=== PATIENT | male | born 1985 | race Hispanic/Latino ===

== ENCOUNTER 2016-11-23 13:02 | Emergency (ER) | payer MEDICAID, OTHER ==
[2016-11-23 13:02] VITALS: BMI 27.2
[2016-11-23 13:15] VITALS: TEMP 98.5
--- NOTE | 2016-11-23 13:37 | C.PDOC ---
History Of Present Illness 31-YEAR-OLD MALE, PRESENTS TO THE EMERGENCY DEPARTMENT WITH COMPLAINTS OF HEADACHE AND RIGHT SHOULDER PAIN. PATIENT STATES HE WAS PLAYING SOFTBALL YESTERDAY, COLLIDED WITH ANOTHER PERSON, FELL AND STRUCK HEAD W +LOC. HE IS CURRENTLY COMPLAINING OF DIFFUSE FRONTAL HEADACHE, NAUSEA/NON-BILIOUS, NON- BLOODY VOMITING. PATIENT NOTES NEW ONSET RIGHT SHOULDER PAIN, THAT IS WORSE WITH MOVEMENT DENIES HX OF CHRONIC SHOULDER PROBLEMS. NO NECK PAIN OR FOCAL WEAKNESS. NO AMS. - HPI Time Seen by Provider: 11/23/16 14:11 Chief Complaint (Nursing): Headache History Per: Patient History/Exam Limitations: no limitations Onset/Duration Of Symptoms: Days Past Medical History Reviewed: Historical Data, Nursing Documentation, Vital Signs Vital Signs: Last Vital Signs Temp 98.5 F 11/23/16 13:15 Pulse 77 11/23/16 14:43 Resp 18 11/23/16 14:43 BP 119/77 11/23/16 14:43 Pulse Ox 98 11/23/16 14:43 - Medical History PMH: HTN, Seizures (WITHDRAWAL FROM ALCOHOL) Denies: Anxiety, Bipolar Disorder, Depression, HIV, Post Traumatic Stress Disorder, Chronic Kidney Disease, Schizophrenia, Sexually Transmitted Disease - [facility] Procedures ALCOHOL DETOXIFICATION (08/30/14) DETOXIFICATION SERVICES FOR SUBSTANCE ABUSE TREATMENT (09/14/15) GROUP MEDICAL CONSULTANT FOR SUBSTANCE ABUSE TREATMENT, PSYCHOEDUCATION (04/06/15) Family History: States: No Known Family Hx - Social History Hx Tobacco Use: No Hx Alcohol Use: Yes Hx Substance Use: No - Immunization History Hx Tetanus Toxoid Vaccination: No Hx Influenza Vaccination: No Hx Pneumococcal Vaccination: No Review Of Systems Except As Marked, All Systems Reviewed And Found Negative. Constitutional: Negative for: Fever Cardiovascular: Negative for: Chest Pain Respiratory: Negative for: Shortness of Breath Gastrointestinal: Positive for: Nausea, Vomiting Neurological: Positive for: Headache. Negative for: Weakness, Numbness, Altered Mental Status Physical Exam - Physical Exam Appears: Non-toxic, No Acute Distress Skin: Warm, Dry, No Rash Head: Atraumatic, Normacephalic Eye(s): bilateral: Normal Inspection, PERRL, EOMI Oral Mucosa: Moist Lips: Normal Appearing Neck: Normal ROM Cardiovascular: Rhythm Regular, No Murmur Respiratory: Normal Breath Sounds, No Accessory Muscle Use Extremity: Normal ROM (R SHOULDER: REPRODUCIBLE PAIN WITH ALL MOVEMENT.), No Deformity, No Swelling Neurological/Psych: Oriented x3, Normal Speech, Normal Cognition, Normal Cranial Nerves, No Cerebellar Signs, Normal Motor, Normal Sensation, Normal Reflexes, Other (NO FOCAL DEFICIT) ED Course And Treatment O2 Sat by Pulse Oximetry: 99 Reevaluation Time: 15:13 Reassessment Condition: Improved Disposition Counseled Patient/Family Regarding: Studies Performed, Diagnosis, Need For Followup - Disposition Referrals: [facility] [Outside] [facility] [Outside] Disposition: HOME/ ROUTINE Disposition Time: 15:13 Condition: IMPROVED Instructions: Concussion (ED), Shoulder Sprain (ED) Forms: [employer] (Hebrew) - Clinical Impression Clinical Impression: Concussion, Shoulder strain - Scribe Statement The provider has reviewed the documentation as recorded by the Scribe (Coby Ly) All medical record entries made by the Scribe were at my direction and personally dictated by me. I have reviewed the chart and agree that the record accurately reflects my personal performance of the history, physical exam, medical decision making, and the department course for this patient. I have also personally directed, reviewed, and agree with the discharge instructions and disposition.
--- NOTE | 2016-11-23 14:30 | CT ---
PROCEDURE: CT HEAD WITHOUT CONTRAST. HISTORY: TRAUMA COMPARISON: Head CT without contrast 09/16/2015. TECHNIQUE: Axial computed tomography images were obtained through the head/brain without intravenous contrast. Radiation dose: Total exam DLP = 999 mGy-cm. This CT exam was performed using one or more of the following dose reduction techniques: Automated exposure control, adjustment of the mA and/or kV according to patient size, and/or use of iterative reconstruction technique. FINDINGS: HEMORRHAGE: No intracranial hemorrhage. BRAIN: Density of the tolbert and white matter structures above or below the tentorium appears within normal limits grossly. There is no mass effect or suspicious extra-axial fluid collection identified. The brainstem is normal appearing. The remaining midline brain anatomy also appears normal. No significant interval change is encountered. VENTRICLES: Unremarkable. No hydrocephalus. CALVARIUM: No fracture or suspicious lytic or blastic process. PARANASAL SINUSES: Unremarkable as visualized. No significant inflammatory changes. MASTOID AIR CELLS: Unremarkable as visualized. No inflammatory changes. OTHER FINDINGS: None. IMPRESSION: Unremarkable unenhanced head CT. No significant change greater prior exited 09/16/2015. No fracture or other calvarium is demonstrated either.
[2016-11-23 14:43] VITALS: BP 119/77; PULSE 77; RESP 18
[2016-11-23 15:15] VITALS: O2SAT 99
--- NOTE | 2016-11-23 17:45 | RAD ---
PROCEDURE: Radiographs of the Right Shoulder HISTORY: TRAUMA COMPARISON: No prior. FINDINGS: BONES: Normal. No fracture. JOINTS: Normal. Glenohumeral and acromioclavicular joints preserved. No osteoarthritis. SOFT TISSUES: Normal. OTHER FINDINGS: None. IMPRESSION: Normal radiographs of the right shoulder.
--- NOTE | 2016-11-23 17:46 | RAD ---
PROCEDURE: Radiographs of the right elbow. HISTORY: TRAUMA COMPARISON: No prior. FINDINGS: BONES: No fracture subluxation or dislocation. No suspicious lytic or blastic change JOINTS: Normal. No osteoarthritis. SOFT TISSUES: Normal. JOINT EFFUSION: None. OTHER FINDINGS: None. IMPRESSION: Unremarkable radiographs of the right elbow.
== END 2016-11-23 15:31 | disposition home or self-care (01) ==
LOC: C.ER 13:02
DX: S06.0X9A Concussion with loss of consciousness of unspecified duration, initial encounter (principal); S46.911A Strain of unspecified muscle, fascia and tendon at shoulder and upper arm level, right arm, initial encounter; W03.XXXA Other fall on same level due to collision with another person, initial encounter; Y93.64 Activity, baseball; Y92.39 Other specified sports and athletic area as the place of occurrence of the external cause

== ENCOUNTER 2017-09-18 18:23 | Observation (INO) | payer MEDICAID, OTHER ==
[2017-09-18 18:23] VITALS: BMI 27.2
--- NOTE | 2017-09-18 19:03 | C.PDOC ---
History Of Present Illness 32 y.o male c/o right medial ankle pain for one week that is getting worse. pt doesn't recall any injury. denies fevers. pt walking with a limp now. Time Seen by Provider: 09/18/17 18:45 Chief Complaint (Nursing): Lower Extremity Problem/Injury History Per: Patient History/Exam Limitations: no limitations Onset/Duration Of Symptoms: Days (7) Current Symptoms Are (Timing): Worse Severity: Moderate Past Medical History Reviewed: Historical Data, Nursing Documentation, Vital Signs Vital Signs: Last Vital Signs Temp 98.3 F 09/18/17 21:47 Pulse 88 09/18/17 21:47 Resp 20 09/18/17 21:47 BP 115/84 09/18/17 21:47 Pulse Ox 100 09/18/17 21:47 - Medical History PMH: HTN, Seizures (WITHDRAWAL FROM ALCOHOL) Denies: Anxiety, Bipolar Disorder, Depression, HIV, Post Traumatic Stress Disorder, Chronic Kidney Disease, Schizophrenia, Sexually Transmitted Disease Other PMH: alcohol abuse Surgical History: Cholecystectomy - [facility] Procedures ALCOHOL DETOXIFICATION (08/30/14) DETOXIFICATION SERVICES FOR SUBSTANCE ABUSE TREATMENT (09/14/15) GROUP MUFFLER TENDER FOR SUBSTANCE ABUSE TREATMENT, PSYCHOEDUCATION (04/06/15) Family History: States: Unknown Family Hx - Social History Hx Tobacco Use: No Hx Alcohol Use: No Hx Substance Use: No - Immunization History Hx Tetanus Toxoid Vaccination: (unk) Hx Influenza Vaccination: No Hx Pneumococcal Vaccination: No Review Of Systems Constitutional: Negative for: Fever, Chills Cardiovascular: Negative for: Chest Pain Respiratory: Negative for: Cough, Shortness of Breath Musculoskeletal: Positive for: Foot Pain (right and ankle pain) Skin: Positive for: Other (excoriations to right lower leg) Neurological: Negative for: Weakness, Numbness Physical Exam - Physical Exam Appears: Non-toxic, No Acute Distress Skin: Warm, Dry, Other (excoriations to right lower leg; irregular patch of erythema and warmth overlying medial and lateral right malleoli with dec rom. ) Head: Atraumatic, Normacephalic Eye(s): bilateral: Normal Inspection Cardiovascular: Rhythm Regular, No Murmur Respiratory: No Decreased Breath Sounds, No Wheezing Extremity: No Normal ROM (right ankle with dec rom 2/2 pain), Tenderness (to medial and lateral right ankle. ), No Calf Tenderness, Swelling (mild) Extremity: Right: [place] Tenderness (medial malleolus), Bilateral: Atraumatic Pulses: Left Dorsalis Pedis: Normal, Right Dorsalis Pedis: Normal Neurological/Psych: Oriented x3, Normal Speech, Normal Cognition ED Course And Treatment - Laboratory Results Result Diagrams: 09/18/17 19:25 09/18/17 19:25 O2 Sat by Pulse Oximetry: 95 Medical Decision Making Medical Decision Making: pt with 1 week of pain to ankle right that is worsening with erythema and swelling to ankle. no fever, no trauma - gout/cellulitis/septic arthritis discussed with Dr India Gee, will admit for iv antibiotics. Disposition Discussed With Dr.: Erick Gee Doctor Will See Patient In The: Hospital - Disposition Disposition: HOSPITALIZED Disposition Time: 20:31 Condition: GOOD - Clinical Impression Clinical Impression: Septic arthritis of ankle
[2017-09-18 19:30] LABS: BASO # 0.1 K/uL (0.0-0.2); BASO % 0.7 % (0.0-2.0); EOS # 0.2 K/uL (0.0-0.7); EOS % 1.5 % (0.0-4.0); HEMOGLOBIN 15.2 g/dL (12.0-18.0); LYMPH # 2.5 K/uL (1.0-4.3); LYMPH % 18.4 % (20.0-40.0); MEAN CELL VOLUME 83.5 fL (80.0-94.0); MEAN CORPUSCULAR HEMOGLOBIN 29.1 pg (27.0-31.0); MEAN CORPUSCULAR HGB CONC 34.8 g/dL (33.0-37.0); MEAN PLATELET VOLUME 9.1 fL (7.2-11.7); MONO # 1.4 K/uL (0.0-0.8); MONO % 10.4 % (0.0-10.0); NEUT # 9.3 K/uL (1.8-7.0); NRBC % 2.3 % (0.0-2.0); RBC 5.22 Mil/uL (4.40-5.90); RED CELL DISTRIBUTION WIDTH 12.6 % (11.5-14.5); WHITE BLOOD COUNT 13.5 K/uL (4.8-10.8)
[2017-09-18 19:41] LABS: ALB/GLOB RATIO 1.3 (1.0-2.1); ALBUMIN 4.9 g/dL (3.5-5.0); AST/SGOT 27 U/L (17-59); BLOOD UREA NITROGEN 16 mg/dL (9-20); GFR AFRICAN-AMERICAN > 60; GFR NON-AFRICAN AMERICAN > 60
[2017-09-18 20:13] LABS: ALT/SGPT 41 U/L (21-72); CALCIUM 9.8 mg/dl (8.6-10.4); URIC ACID 10.4 mg/dL (3.5-8.5)
[2017-09-18] MEDS ORDERED: Vancomycin 1 gm/NS 200 ml 1 GM/200 ML BAG IVPB STA (20:15)
[2017-09-18] MEDS ORDERED: Piperacillin/Tazobact 3.375 gm 100 ML IVPB STA (20:15)
[2017-09-18] MEDS ORDERED: Piperacillin/Tazobact 3.375 gm 100 ML IVPB ONE (20:36)
[2017-09-18] MEDS ORDERED: Vancomycin 500mg/D5W 100 ml 0 MG/0 ML BAG IVPB ONE (20:37)
--- NOTE | 2017-09-18 21:15 | CP.PCM.HP ---
<Nelson Carcamo E - Last Filed: 09/18/17 22:21> History of Present Illness - History of Present Illness History of Present Illness: CC: Right ankle pain HPI: Patient is a 32 year old male with past medical history of HTN, seizures ( due to alcohol withdrawal), Alcohol abuse, stage 1 cirrhosis, who presents to the ED with complaints of right medial ankle pain that started on Thursday. Patient noted mild right ankle pain while walking in the supermarket on Thursday, however, he was still able to play two softball games. As the week progressed, patient noted increased pain and more discomfort with walking. Patient started with conservative management such as elevation, ice and OTC Tylenol; these measures provided intermittent relief. Patient came to the ED today due to unbearable pain and increased discomfort while walking. During the encounter, patient states that he had similar episode in the past but unsure of what happened. Patient did report that he eats meat 3x/day (heavy protein intake). Patient denies fever, chills, nausea, vomiting, chest pain, palpitations, SOB, dizziness, abdominal pain, diarrhea, trauma or injury to his right leg and alcohol intake Code Status: Full code PMHX: HTN, seziures (due to alcohol withdrawal), Alcohol abuse, stage 1 cirrhosis PSHx: Denies FHx: Denies Medications: Denies Allergies: NKDA Social Hx: Lives with girlfriend. Works with [employer]. Intermittent tobacco use, last alcoholic drink (08/25/2015) and denies illicit drug use Person of contact: Michelle, Present on Admission - Present on Admission Any Indicators Present on Admission: No Review of Systems - Constitutional Constitutional: absent: Chills, Fever, Headache - EENT Ears: absent: Dizziness - Cardiovascular Cardiovascular: absent: Chest Pain, Dyspnea, Edema, Leg Edema, Leg Ulcers, Lightheadedness, Palpitations - Respiratory Respiratory: absent: Dyspnea - Gastrointestinal Gastrointestinal: absent: Abdominal Pain, Diarrhea, Nausea, Vomiting - Musculoskeletal Musculoskeletal: absent: Back Pain, Numbness, Tingling - Neurological Neurological: absent: Abnormal Movements, Dizziness, Headaches, Lack of Coordination, Tingling, Weakness - Endocrine Endocrine: absent: Fatigue, Palpitations Past Patient History - Infectious Disease Hx of Infectious Diseases: None - Past Medical History & Family History Past Medical History?: Yes - Past Social History Smoking Status: Never Smoked - CARDIAC Hx Hypertension: Yes - PULMONARY Hx Respiratory Disorders: No Hx Tuberculosis: No - NEUROLOGICAL Hx Seizures: Yes (WITHDRAWAL FROM ALCOHOL) - HEENT Hx HEENT Problems: No - RENAL Hx Chronic Kidney Disease: No - ENDOCRINE/METABOLIC Hx Endocrine Disorders: No - HEMATOLOGICAL/ONCOLOGICAL Hx Human Immunodeficiency Virus (HIV): No - INTEGUMENTARY Hx Dermatological Problems: No - MUSCULOSKELETAL/RHEUMATOLOGICAL Hx Falls: No - GASTROINTESTINAL Hx Gastrointestinal Disorders: No - GENITOURINARY/GYNECOLOGICAL Hx Sexually Transmitted Disorders: No - PSYCHIATRIC Hx Anxiety: No Hx Bipolar Disorder: No Hx Depression: No Hx Post Traumatic Stress Disorder: No Hx Schizophrenia: No Hx Substance Use: No - SURGICAL HISTORY Hx Cholecystectomy: Yes - ANESTHESIA Hx Anesthesia: No Meds Allergies/Adverse Reactions: Allergies Allergy/AdvReac Type Severity Reaction Status Date / Time No Known Allergies Allergy Verified 09/18/17 18:35 Physical Exam - Constitutional Appears: No Acute Distress - Head Exam Head Exam: ATRAUMATIC, NORMAL INSPECTION - Eye Exam Eye Exam: EOMI, Normal appearance - ENT Exam ENT Exam: Mucous Membranes Moist - Respiratory Exam Respiratory Exam: Clear to Auscultation Bilateral, NORMAL BREATHING PATTERN. absent: Prolonged Expiratory Phase, Rhonchi, Wheezes, Respiratory Distress - Cardiovascular Exam Cardiovascular Exam: REGULAR RHYTHM, +S1, +S2 - GI/Abdominal Exam GI & Abdominal Exam: Normal Bowel Sounds, Soft. absent: Distended, Firm, Guarding, Tenderness - Extremities Exam Additional comments: Blanching erythema of the right ankle ( Medial) Mild edematous of the right ankle ( Medial) Tenderness to palpation right ankle ( Medial) Decreased ROM of the right ankle - Neurological Exam Neurological exam: Alert, Oriented x3 - Psychiatric Exam Psychiatric exam: Normal Affect - Skin Skin Exam: Normal Color Results - Vital Signs Recent Vital Signs: Last Vital Signs Temp 98.9 F 09/18/17 18:32 Pulse 90 09/18/17 18:32 Resp 18 09/18/17 18:32 BP 124/84 09/18/17 18:32 Pulse Ox 95 09/18/17 20:31 - Labs Result Diagrams: 09/18/17 19:25 09/18/17 19:25 Labs: Laboratory Results - last 24 hr 09/18/17 09/18/17 09/18/17 19:25 19:25 20:29 WBC 13.5 H RBC 5.22 Hgb 15.2 Hct 43.6 MCV 83.5 D MCH 29.1 MCHC 34.8 RDW 12.6 Plt Count 305 MPV 9.1 Neut % (Auto) 69.0 Lymph % (Auto) 18.4 L Antelope % (Auto) 10.4 H Eos % (Auto) 1.5 Baso % (Auto) 0.7 Neut # (Auto) 9.3 H Lymph # (Auto) 2.5 Antelope # (Auto) 1.4 H Eos # (Auto) 0.2 Baso # (Auto) 0.1 Sodium 141 Potassium 4.4 Chloride 99 Carbon Dioxide 26 Anion Gap 20 BUN 16 Creatinine 1.0 Est GFR ( Amer) > 60 Est GFR (Non-Af Amer) > 60 Random Glucose 89 Lactic Acid Uric Acid 10.4 H Calcium 9.8 Total Bilirubin 1.0 AST 27 ALT 41 Alkaline Phosphatase 78 Total Protein 8.5 H Albumin 4.9 Globulin 3.7 Albumin/Globulin Ratio 1.3 Alcohol, Quantitative < 10 09/18/17 20:49 WBC RBC Hgb Hct MCV MCH MCHC RDW Plt Count MPV Neut % (Auto) Lymph % (Auto) Antelope % (Auto) Eos % (Auto) Baso % (Auto) Neut # (Auto) Lymph # (Auto) Antelope # (Auto) Eos # (Auto) Baso # (Auto) Sodium Potassium Chloride Carbon Dioxide Anion Gap BUN Creatinine Est GFR ( Amer) Est GFR (Non-Af Amer) Random Glucose Lactic Acid 0.7 Uric Acid Calcium Total Bilirubin AST ALT Alkaline Phosphatase Total Protein Albumin Globulin Albumin/Globulin Ratio Alcohol, Quantitative Assessment & Plan (1) Gout of right ankle Assessment and Plan: 2/2 heavy protein diet F/u right ankle X-ray to r/o fracture Medications/management: * Indomethacin 50mg PO Q8H * Elevation of right ankle * Ice pack applied to affected area Q4H Status: Acute (2) Edema of right ankle Assessment and Plan: With Erythema; possible cellulitis F/u Right ankle X-ray Medication: * Vanco 1gm IV once, given in the ED * Zosyn 3.375gm IV once, given in the ED * Doxycycline 100mg PO Q12H ( Start 09/19/17) Status: Acute (3) Prophylactic measure Assessment and Plan: GI: Protonix 40mg PO QD DVT: SCds ( Left lower Extremity) All plans and management discussed with Dr. Brian Gee Status: Acute <Erick Gee - Last Filed: 09/18/17 23:25> Results - Vital Signs Recent Vital Signs: Last Vital Signs Temp 98.2 F 09/18/17 23:07 Pulse 76 09/18/17 23:07 Resp 20 09/18/17 23:07 BP 118/82 09/18/17 23:07 Pulse Ox 96 09/18/17 23:07 - Labs Result Diagrams: 09/18/17 19:25 09/18/17 19:25 Labs: Laboratory Results - last 24 hr 09/18/17 09/18/17 09/18/17 19:25 19:25 20:29 WBC 13.5 H RBC 5.22 Hgb 15.2 Hct 43.6 MCV 83.5 D MCH 29.1 MCHC 34.8 RDW 12.6 Plt Count 305 MPV 9.1 Neut % (Auto) 69.0 Lymph % (Auto) 18.4 L Antelope % (Auto) 10.4 H Eos % (Auto) 1.5 Baso % (Auto) 0.7 Neut # (Auto) 9.3 H Lymph # (Auto) 2.5 Antelope # (Auto) 1.4 H Eos # (Auto) 0.2 Baso # (Auto) 0.1 Sodium 141 Potassium 4.4 Chloride 99 Carbon Dioxide 26 Anion Gap 20 BUN 16 Creatinine 1.0 Est GFR ( Amer) > 60 Est GFR (Non-Af Amer) > 60 Random Glucose 89 Lactic Acid Uric Acid 10.4 H Calcium 9.8 Total Bilirubin 1.0 AST 27 ALT 41 Alkaline Phosphatase 78 Total Protein 8.5 H Albumin 4.9 Globulin 3.7 Albumin/Globulin Ratio 1.3 Urine Opiates Screen Urine Methadone Screen Ur Barbiturates Screen Ur Phencyclidine Scrn Ur Amphetamines Screen U Benzodiazepines Scrn U Oth Cocaine Metabols U Cannabinoids Screen Alcohol, Quantitative < 10 09/18/17 09/18/17 20:49 21:18 WBC RBC Hgb Hct MCV MCH MCHC RDW Plt Count MPV Neut % (Auto) Lymph % (Auto) Antelope % (Auto) Eos % (Auto) Baso % (Auto) Neut # (Auto) Lymph # (Auto) Antelope # (Auto) Eos # (Auto) Baso # (Auto) Sodium Potassium Chloride Carbon Dioxide Anion Gap BUN Creatinine Est GFR ( Amer) Est GFR (Non-Af Amer) Random Glucose Lactic Acid 0.7 Uric Acid Calcium Total Bilirubin AST ALT Alkaline Phosphatase Total Protein Albumin Globulin Albumin/Globulin Ratio Urine Opiates Screen Negative Urine Methadone Screen Negative Ur Barbiturates Screen Negative Ur Phencyclidine Scrn Negative Ur Amphetamines Screen Negative U Benzodiazepines Scrn Negative U Oth Cocaine Metabols Negative U Cannabinoids Screen Negative Alcohol, Quantitative Attending/Attestation - Attestation I have personally seen and examined this patient.: Yes I have fully participated in the care of the patient.: Yes I have reviewed all pertinent clinical information: Yes Notes (Text): 09/18/17 23:25 Patient was seen and examined before resident Dr. Hemanth Carcamo History, Exam, Assessment and Plan were gone over with Dr. Carlos Alberto Gee D.O.
[2017-09-18 21:37] LABS: BARBITURATES, UR NEGATIVE (NEGATIVE); BENZODIAZEPINES, UR NEGATIVE (NEGATIVE); OPIATES, UR NEGATIVE (NEGATIVE); PHENCYCLIDINE, UR NEGATIVE (NEGATIVE)
[2017-09-18 21:48] VITALS: RESP 20
[2017-09-19] MEDS: Saccharomyces Boulardi 250 mg Cap PO SCH ×2 (01:33→09:48)
[2017-09-19 08:11] VITALS: BP 115/77; PULSE 67; TEMP 97.8; O2SAT 95
[2017-09-19 08:18] LABS: BASO % 0.2 % (0.0-2.0); EOS % 0.3 % (0.0-4.0); HEMOGLOBIN 14.1 g/dL (12.0-18.0); LYMPH # 1.8 K/uL (1.0-4.3); MEAN CELL VOLUME 83.6 fL (80.0-94.0); MEAN CORPUSCULAR HEMOGLOBIN 29.1 pg (27.0-31.0); MEAN CORPUSCULAR HGB CONC 34.8 g/dL (33.0-37.0); MEAN PLATELET VOLUME 9.2 fL (7.2-11.7); MONO # 1.2 K/uL (0.0-0.8); MONO % 11.9 % (0.0-10.0); NEUT # 6.9 K/uL (1.8-7.0); NEUT % 69.6 % (50.0-75.0); NRBC % 0.2 % (0.0-2.0); RBC 4.84 Mil/uL (4.40-5.90); RED CELL DISTRIBUTION WIDTH 12.8 % (11.5-14.5)
[2017-09-19 08:52] LABS: ALB/GLOB RATIO 1.4 (1.0-2.1); ALBUMIN 4.4 g/dL (3.5-5.0); ALT/SGPT 36 U/L (21-72); AST/SGOT 28 U/L (17-59); BLOOD UREA NITROGEN 22 mg/dL (9-20); CALCIUM 9.1 mg/dl (8.6-10.4); GFR AFRICAN-AMERICAN > 60; GFR NON-AFRICAN AMERICAN > 60
[2017-09-19] MEDS ORDERED: Pantoprazole 20 mg EC Tab PO SCH (10:00)
--- NOTE | 2017-09-19 11:58 | RAD ---
PROCEDURE: Right Ankle Radiographs. HISTORY: Pain and swelling medial malleolus COMPARISON: None FINDINGS: BONES: Normal. No fracture. JOINTS: Normal. No osteoarthritis. Ankle mortise maintained. Talar dome intact SOFT TISSUES: Mild soft tissue swelling overlying the lateral malleolus OTHER FINDINGS: None. IMPRESSION: No evidence of acute displaced fracture nor dislocation. Mild soft swelling overlying the lateral malleolus.
[2017-09-19] MEDS ORDERED: MethylPREDNISolone 40 mg Vial IVP STA (13:18)
--- NOTE | 2017-09-19 18:14 | CP.PCM.DIS ---
<Yasmin Patton DO - Last Filed: 09/19/17 18:52> Provider - Provider Date of Admission: 09/18/17 20:26 Attending physician: Erick Gee MD Time Spent in preparation of Discharge (in minutes): 40 Diagnosis - Discharge Diagnosis (1) Gout of right ankle Status: Acute Comment: Patient had improvement in symptoms with initiating indomethacin therapy. Patient to continue indomethacin on discharge until follow up with clinic. Patient advised on reducing red meat in diet, avoiding alcohol. Hospital Course - Lab Results Lab Results: Most Recent Lab Values WBC 10.0 K/uL (4.8-10.8) 09/19/17 07:46 RBC 4.84 Mil/uL (4.40-5.90) 09/19/17 07:46 Hgb 14.1 g/dL (12.0-18.0) 09/19/17 07:46 Hct 40.4 % (35.0-51.0) 09/19/17 07:46 MCV 83.6 fL (80.0-94.0) 09/19/17 07:46 MCH 29.1 pg (27.0-31.0) 09/19/17 07:46 MCHC 34.8 g/dL (33.0-37.0) 09/19/17 07:46 RDW 12.8 % (11.5-14.5) 09/19/17 07:46 Plt Count 263 K/uL (130-400) 09/19/17 07:46 MPV 9.2 fL (7.2-11.7) 09/19/17 07:46 Neut % (Auto) 69.6 % (50.0-75.0) 09/19/17 07:46 Lymph % (Auto) 18.0 % (20.0-40.0) L 09/19/17 07:46 [place] % (Auto) 11.9 % (0.0-10.0) H 09/19/17 07:46 Eos % (Auto) 0.3 % (0.0-4.0) 09/19/17 07:46 Baso % (Auto) 0.2 % (0.0-2.0) 09/19/17 07:46 Neut # (Auto) 6.9 K/uL (1.8-7.0) 09/19/17 07:46 Lymph # (Auto) 1.8 K/uL (1.0-4.3) 09/19/17 07:46 [place] # (Auto) 1.2 K/uL (0.0-0.8) H 09/19/17 07:46 Eos # (Auto) 0.0 K/uL (0.0-0.7) 09/19/17 07:46 Baso # (Auto) 0.0 K/uL (0.0-0.2) 09/19/17 07:46 Sodium 139 mmol/L (132-148) 09/19/17 07:46 Potassium 4.0 mmol/L (3.6-5.2) 09/19/17 07:46 Chloride 100 mmol/L (98-107) 09/19/17 07:46 Carbon Dioxide 26 mmol/L (22-30) 09/19/17 07:46 Anion Gap 18 (10-20) 09/19/17 07:46 BUN 22 mg/dL (9-20) H 09/19/17 07:46 Creatinine 1.0 mg/dL (0.8-1.5) 09/19/17 07:46 Est GFR ( Amer) > 60 09/19/17 07:46 Est GFR (Non-Af Amer) > 60 09/19/17 07:46 Random Glucose 102 mg/dL (75-110) 09/19/17 07:46 Lactic Acid 0.7 mmol/L (0.7-2.1) 09/18/17 20:49 Uric Acid 10.4 mg/dL (3.5-8.5) H 09/18/17 19:25 Calcium 9.1 mg/dl (8.6-10.4) 09/19/17 07:46 Total Bilirubin 0.8 mg/dL (0.2-1.3) 09/19/17 07:46 AST 28 U/L (17-59) 09/19/17 07:46 ALT 36 U/L (21-72) 09/19/17 07:46 Alkaline Phosphatase 74 U/L (38-126) 09/19/17 07:46 Total Protein 7.5 g/dL (6.3-8.3) 09/19/17 07:46 Albumin 4.4 g/dL (3.5-5.0) 09/19/17 07:46 Globulin 3.1 gm/dL (2.2-3.9) 09/19/17 07:46 Albumin/Globulin Ratio 1.4 (1.0-2.1) 09/19/17 07:46 Urine Opiates Screen Negative (NEGATIVE) 09/18/17 21:18 Urine Methadone Screen Negative (NEGATIVE) 09/18/17 21:18 Ur Barbiturates Screen Negative (NEGATIVE) 09/18/17 21:18 Ur Phencyclidine Scrn Negative (NEGATIVE) 09/18/17 21:18 Ur Amphetamines Screen Negative (NEGATIVE) 09/18/17 21:18 U Benzodiazepines Scrn Negative (NEGATIVE) 09/18/17 21:18 U Oth Cocaine Metabols Negative (NEGATIVE) 09/18/17 21:18 U Cannabinoids Screen Negative (NEGATIVE) 09/18/17 21:18 Alcohol, Quantitative < 10 mg/dl (0-10) 09/18/17 20:29 - Hospital Course Hospital Course: On Admission: Patient is a 32 year old male with past medical history of HTN, seizures (due to alcohol withdrawal), Alcohol abuse, stage 1 cirrhosis, who presents to the ED with complaints of right medial ankle pain that started on Thursday. Patient noted mild right ankle pain while walking in the supermarket on Thursday, however , he was still able to play two softball games. As the week progressed, patient noted increased pain and more discomfort with walking. Patient started with conservative management such as elevation, ice and OTC Tylenol; these measures provided intermittent relief. Patient came to the ED today due to unbearable pain and increased discomfort while walking. During the encounter, patient states that he had similar episode in the past but unsure of what happened. Patient did report that he eats meat 3x/day (heavy protein intake). Patient denies fever, chills, nausea, vomiting, chest pain, palpitations, SOB, dizziness , abdominal pain, diarrhea, trauma or injury to his right leg and alcohol intake. During hospitalization: Uric acid 10.4 patient was started on indomethacin 50mg TID patient was given solumedrol 40mg IVP x 1 dose ankle xray: negative for fracture. mild soft tissue swelling overlying lateral malleolus (see full report) Patient reported improvement in symptoms with indomethacin. Patient was counseled on dietary changes for reduction of gout symptoms. Patient was instructed to follow up with clinic at [facility] to schedule appointment for follow up of uric acid and initiation of other gout therapies. On discharge: Patient stable for discharge home per Dr. Duran. Patient will need to call [facility] [phone] to schedule an appointment to establish care. Patient is being discharged with Indomethacin. Patient is to return to the ER if symptoms or reoccur. Discharge Exam - Head Exam Head Exam: ATRAUMATIC, NORMAL INSPECTION - Eye Exam Eye Exam: EOMI - ENT Exam ENT Exam: Mucous Membranes Moist - Respiratory Exam Respiratory Exam: Clear to PA & Lateral, NORMAL BREATHING PATTERN - Cardiovascular Exam Cardiovascular Exam: +S1, +S2 - GI/Abdominal Exam GI & Abdominal Exam: Normal Bowel Sounds, Soft. absent: Tenderness - Extremities Exam Additional comments: right ankle with mild tenderness, mild erythema - Neurological Exam Neurological exam: Alert, Oriented x3 - Psychiatric Exam Psychiatric exam: Normal Affect - Skin Skin Exam: Warm Discharge Plan - Discharge Medications Prescriptions: Indomethacin [Indocin] 50 mg PO TID #12 cap - Follow Up Plan Condition: GOOD Disposition: HOME/ ROUTINE Additional Instructions: Patient stable for discharge home per Dr. Duran. Patient will need to call [facility] [phone] to schedule an appointment to establish care. Patient is being discharged with Indomethacin. Patient is to return to the ER if symptoms or reoccur. Referrals: [facility] [Outside] <Chidi Duran - Last Filed: 09/20/17 08:05> Provider - Provider Date of Admission: 09/18/17 20:26 Attending physician: Erick Gee MD Hospital Course - Lab Results Lab Results: Most Recent Lab Values WBC 10.0 K/uL (4.8-10.8) 09/19/17 07:46 RBC 4.84 Mil/uL (4.40-5.90) 09/19/17 07:46 Hgb 14.1 g/dL (12.0-18.0) 09/19/17 07:46 Hct 40.4 % (35.0-51.0) 09/19/17 07:46 MCV 83.6 fL (80.0-94.0) 09/19/17 07:46 MCH 29.1 pg (27.0-31.0) 09/19/17 07:46 MCHC 34.8 g/dL (33.0-37.0) 09/19/17 07:46 RDW 12.8 % (11.5-14.5) 09/19/17 07:46 Plt Count 263 K/uL (130-400) 09/19/17 07:46 MPV 9.2 fL (7.2-11.7) 09/19/17 07:46 Neut % (Auto) 69.6 % (50.0-75.0) 09/19/17 07:46 Lymph % (Auto) 18.0 % (20.0-40.0) L 09/19/17 07:46 [place] % (Auto) 11.9 % (0.0-10.0) H 09/19/17 07:46 Eos % (Auto) 0.3 % (0.0-4.0) 09/19/17 07:46 Baso % (Auto) 0.2 % (0.0-2.0) 09/19/17 07:46 Neut # (Auto) 6.9 K/uL (1.8-7.0) 09/19/17 07:46 Lymph # (Auto) 1.8 K/uL (1.0-4.3) 09/19/17 07:46 [place] # (Auto) 1.2 K/uL (0.0-0.8) H 09/19/17 07:46 Eos # (Auto) 0.0 K/uL (0.0-0.7) 09/19/17 07:46 Baso # (Auto) 0.0 K/uL (0.0-0.2) 09/19/17 07:46 Sodium 139 mmol/L (132-148) 09/19/17 07:46 Potassium 4.0 mmol/L (3.6-5.2) 09/19/17 07:46 Chloride 100 mmol/L (98-107) 09/19/17 07:46 Carbon Dioxide 26 mmol/L (22-30) 09/19/17 07:46 Anion Gap 18 (10-20) 09/19/17 07:46 BUN 22 mg/dL (9-20) H 09/19/17 07:46 Creatinine 1.0 mg/dL (0.8-1.5) 09/19/17 07:46 Est GFR ( Amer) > 60 09/19/17 07:46 Est GFR (Non-Af Amer) > 60 09/19/17 07:46 Random Glucose 102 mg/dL (75-110) 09/19/17 07:46 Lactic Acid 0.7 mmol/L (0.7-2.1) 09/18/17 20:49 Uric Acid 10.4 mg/dL (3.5-8.5) H 09/18/17 19:25 Calcium 9.1 mg/dl (8.6-10.4) 09/19/17 07:46 Total Bilirubin 0.8 mg/dL (0.2-1.3) 09/19/17 07:46 AST 28 U/L (17-59) 09/19/17 07:46 ALT 36 U/L (21-72) 09/19/17 07:46 Alkaline Phosphatase 74 U/L (38-126) 09/19/17 07:46 Total Protein 7.5 g/dL (6.3-8.3) 09/19/17 07:46 Albumin 4.4 g/dL (3.5-5.0) 09/19/17 07:46 Globulin 3.1 gm/dL (2.2-3.9) 09/19/17 07:46 Albumin/Globulin Ratio 1.4 (1.0-2.1) 09/19/17 07:46 Urine Opiates Screen Negative (NEGATIVE) 09/18/17 21:18 Urine Methadone Screen Negative (NEGATIVE) 09/18/17 21:18 Ur Barbiturates Screen Negative (NEGATIVE) 09/18/17 21:18 Ur Phencyclidine Scrn Negative (NEGATIVE) 09/18/17 21:18 Ur Amphetamines Screen Negative (NEGATIVE) 09/18/17 21:18 U Benzodiazepines Scrn Negative (NEGATIVE) 09/18/17 21:18 U Oth Cocaine Metabols Negative (NEGATIVE) 09/18/17 21:18 U Cannabinoids Screen Negative (NEGATIVE) 09/18/17 21:18 Alcohol, Quantitative < 10 mg/dl (0-10) 09/18/17 20:29 Attending/Attestation - Attestation I have personally seen and examined this patient.: Yes I have fully participated in the care of the patient.: Yes I have reviewed all pertinent clinical information, including history, physical exam and plan: Yes Notes (Text): 09/20/17 08:04 Medical attending: Patient was seen and examined by me. Agree with the above note by the coroner/medical examiner We went over with the patient his high uric acid level and also we discussed that he needs to avoid red meats as this can greatly exacerbate the situation. Also we encouraged avoiding alcohol consumption as well. BEfore he left we also gave solumedrol as well. RX for indomethacin thank you Chidi Duran
[2017-09-21] MEDS ORDERED: Pneumococcal 23-Valent Vaccine IM ONE (10:00)
== END 2017-09-19 14:55 | disposition home or self-care (01) ==
LOC: C.ER 18:23 → C.9E 20:26 → C.3T 22:07
PROVIDERS: ADMIT Family Medicine; ATTEND Family Medicine
DX: M10.9 Gout, unspecified (principal); I10 Essential (primary) hypertension
CPT/HCPCS: 36415; 73610; 80053; 80320; 80324; 80345; 80346; 80349; 80353; 80358; 80361; 83605; 83992; 84550; 85025; 87040; 87081; 96365; 96375; 99284; G0378; J1885; J2543; J2920; J3370